=== PATIENT | male | born 1955 | race Caucasian/White ===

== ENCOUNTER 2018-07-01 17:00 | Emergency (ER) | payer OTHER ==
[2018-07-01 17:42] LABS: ABSOLUTE BASOPHILS # (AUTO) 0.1 10^3/uL (0.0-0.2); ABSOLUTE EOSINOPHILS # (AUTO) 0.1 10^3/uL (0.0-0.6); ABSOLUTE LYMPHOCYTES (AUTO) 1.7 10^3/uL (0.5-4.7); ABSOLUTE MONOCYTES (AUTO) 0.3 10^3/uL (0.1-1.4); ABSOLUTE NEUT (AUTO) 4.4 10^3/uL (1.7-8.2); BASOPHILS % (AUTO) 1.3 % (0-2); HEMATOCRIT 42.2 % (37.9-51.0); HEMOGLOBIN 14.4 g/dL (13.5-17.0); LYMPHOCYTES % (AUTO) 25.4 % (13-45); MEAN CORPUSCULAR HEMOGLOBIN 32.9 pg (27.0-33.4); MEAN CORPUSCULAR VOLUME 97 fl (80-97); MONOCYTES % (AUTO) 5.1 % (3-13); PLATELET COUNT 194 10^3/uL (150-450); RED BLOOD COUNT 4.37 10^6/uL (4.35-5.55); RED CELL DISTRIBUTION WIDTH 13.7 % (11.5-14.0); SEGMENTED NEUTROPHILS % (AUTO) 66.2 % (42-78); TOTAL CELLS COUNTED % (AUTO) 100 %; WHITE BLOOD COUNT 6.6 10^3/uL (4.0-10.5)
[2018-07-01 17:58] LABS: ALANINE AMINOTRANSFERASE 85 U/L (21-72); ALBUMIN 4.8 g/dL (3.5-5.0); ALKALINE PHOSPHATASE 89 U/L (38-126); ANION GAP 11 (5-19); ASPARTATE AMINO TRANSFERASE 141 U/L (17-59); BILIRUBIN,DIRECT 0.4 mg/dL (0.0-0.4); BILIRUBIN,TOTAL 1.1 mg/dL (0.2-1.3); BLOOD UREA NITROGEN 13 mg/dL (7-20); CALCIUM 10.6 mg/dL (8.4-10.2); CARBON DIOXIDE 25 mmol/L (22-30); CHLORIDE 101 mmol/L (98-107); CREATINE KINASE 61 U/L (55-170); GLUCOSE 103 mg/dL (75-110); POTASSIUM 4.4 mmol/L (3.6-5.0); SODIUM 137.4 mmol/L (137-145); TOTAL PROTEIN 8.1 g/dL (6.3-8.2)
[2018-07-01 18:10] LABS: CREATINE KINASE MB 0.43 ng/mL (<4.55)
[2018-07-01 18:11] LABS: TROPONIN I < 0.012 ng/mL
[2018-07-01 18:58] LABS: APPEARANCE,URINE SLIGHTLY-CLOUDY; BILIRUBIN,URINE NEGATIVE (NEGATIVE); COLOR,URINE YELLOW; GLUCOSE, URINE NEGATIVE (NEGATIVE); KETONES,URINE NEGATIVE (NEGATIVE); LEUKOCYTE ESTERASE,URINE NEGATIVE (NEGATIVE); NITRITE,URINE NEGATIVE (NEGATIVE); PROTEIN,URINE 30 mg/dL (NEGATIVE); UROBILINOGEN,URINE NEGATIVE mg/dL (<2.0)
--- NOTE | 2018-07-01 19:42 | ER Document Report ---
ED General - General Chief Complaint: Near Syncope Stated Complaint: POSSIBLE SYNCOPE Time Seen by Provider: 07/01/18 18:31 Primary Care Provider: OLIVER AGUIRRE [Primary Care Provider] - Follow up as needed Notes: Patient is a 62-year-old male with a past medical history of hypothyroidism who presents with an episode of lightheadedness. 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 States that he became diaphoretic and clammy. Symptoms came on abruptly, regarded as being severe when present. No obvious exacerbating factor. He sat down and began to feel better but staff at the bank did call 911. The patient states "I told them I did not think that was necessary but they called anyways". At the time of my evaluation his only complaint is that he is hungry and would like something to eat. He denies any associated chest pain, shortness of breath, focal weakness, numbness or headache. Denies a history of similar symptoms in the past. Has not seen his primary physician regarding today's concerns. No history of DVT or pulmonary embolus. No cardiac history. TRAVEL OUTSIDE OF THE [place] IN LAST 30 DAYS: No - Related Data Allergies/Adverse Reactions: amoxicillin Allergy (Verified 07/01/18 17:15) Penicillins Allergy (Verified 07/01/18 17:15) Past Medical History - General Information source: Patient - Social History Smoking Status: Never Smoker Frequency of alcohol use: None Drug Abuse: None Lives with: Alone Family History: Reviewed & Not Pertinent Patient has suicidal ideation: No Patient has homicidal ideation: No - Past Medical History Cardiac Medical History: Reports: Hx Hypercholesterolemia Renal/ Medical History: Denies: Hx Peritoneal Dialysis Past Surgical History: Reports: Hx Orthopedic Surgery - right knee x3 Review of Systems - Review of Systems Notes: Constitutional: Negative for fever. HENT: Negative for sore throat. Eyes: Negative for visual changes. Cardiovascular: Negative for chest pain. Positive for lightheadedness Respiratory: Negative for shortness of breath. Gastrointestinal: Negative for abdominal pain, vomiting or diarrhea. Genitourinary: Negative for dysuria. Musculoskeletal: Negative for back pain. Skin: Negative for rash. Neurological: Negative for headaches, weakness or numbness. 10 point ROS negative except as marked above and in HPI. Physical Exam - Vital signs Vitals: Temp Resp Pulse Ox 97.7 F 16 95 07/01/18 17:14 07/01/18 17:14 07/01/18 17:14 Interpretation: Normal Notes: PHYSICAL EXAMINATION: GENERAL: Well-appearing, well-nourished and in no acute distress. HEAD: Atraumatic, normocephalic. EYES: Pupils equal round and reactive to light, extraocular movements intact, sclera anicteric, conjunctiva are normal. ENT: nares patent, oropharynx clear without exudates. Moist mucous membranes. NECK: Normal range of motion, supple without lymphadenopathy LUNGS: Breath sounds clear to auscultation bilaterally and equal. No wheezes rales or rhonchi. HEART: Regular rate and rhythm without murmurs ABDOMEN: Soft, nontender, normoactive bowel sounds. No guarding, no rebound. No masses appreciated. EXTREMITIES: Normal range of motion, no pitting or edema. No cyanosis. NEUROLOGICAL: No focal neurological deficits. Moves all extremities spontaneously and on command. PSYCH: Normal mood, normal affect. SKIN: Warm, Dry, normal turgor, no rashes or lesions noted. Course - Re-evaluation Re-evalutation: 07/01/18 19:38 Presentation of near syncope of unclear etiology. Patient normotensive, alert, without focal neurologic deficits at time of arrival. Denies lightheadedness was during exertion. No preceding symptoms of palpitations, chest pain, or shortness of breath. Patient asymptomatic at time of arrival. EKG is without evidence of HCOM, right heart strain, ST changes to suggest ischemia, prolong QTc, delta wave, epsilon wave, or Brugada syndrome. Patient denies any family history of sudden cardiac , personal history of of structural heart disease. Patient denies any symptoms to suggest an acute PE, GA, TAD, SAH, seizure, or acute GI bleed as the etiology of their near syncope today. On exam, no murmurs to suggest critical aortic stenosis as possible etiology. Based on overall clinical history, exam findings, vitals, and patients appearance, I feel it is safe for patient to be discharged home at this time with close outpatient follow-up and strict return precautions. Patient is in agreement with this plan, has verbalized indications for return to ED, and questions have been answered. - Vital Signs Vital signs: Temp Pulse Resp BP Pulse Ox 98.0 F 14 138/97 H 98 07/01/18 19:46 07/01/18 19:40 07/01/18 19:40 07/01/18 19:40 - Laboratory Result Diagrams: 07/01/18 17:08 07/01/18 17:08 Laboratory results interpreted by me: 07/01/18 07/01/18 17:08 18:10 Calcium 10.6 H AST 141 H ALT 85 H Urine Protein 30 H Urine Blood SMALL H - EKG Interpretation by Me Additional EKG results interpreted by me: 07/01/18 19:41 Sinus rhythm, rate 81. No ST elevations or depressions. QTC is 446. Discharge - Discharge Clinical Impression: Near syncope, Lightheadedness Condition: Good Disposition: HOME, SELF-CARE Additional Instructions: You were seen today after an episode of almost passing out. Your EKG here is no rmal. At this time, we do not feel that your episode of lightheadedness was from any life-threatening cause. Please drink plenty of fluids over the next several days. Return to emergency department if you have any further episodes of syncope, headache, weakness, numbness, chest pain, or shortness of breath. Please follow up closely with your primary care physician. Referrals: [facility] [Primary Care Provider] - Follow up as needed
--- NOTE | 2018-07-01 19:45 | EKG REPORT ---
SEVERITY:- BORDERLINE ECG - SINUS RHYTHM BORDERLINE T ABNORMALITIES, ANTERIOR LEADS : Confirmed by: Manuela Roper MD 01-Jul-2018 19:44:40
[2018-07-01 19:46] VITALS: BP 138/97
== END 2018-07-01 19:52 | disposition home or self-care (01) ==
LOC: ER 17:00
DX: R55 Syncope and collapse (principal); R61 Generalized hyperhidrosis; Z88.0 Allergy status to penicillin
CPT/HCPCS: 36415; 80053; 81001; 82550; 82553; 84484; 85025; 93005; 93010; 99284

== ENCOUNTER 2018-12-11 13:45 | Emergency (ER) | payer OTHER, MEDICARE ==
[2018-12-11 14:12] LABS: ABSOLUTE BASOPHILS # (AUTO) 0.1 10^3/uL (0.0-0.2); ABSOLUTE EOSINOPHILS # (AUTO) 0.2 10^3/uL (0.0-0.6); ABSOLUTE LYMPHOCYTES (AUTO) 1.9 10^3/uL (0.5-4.7); ABSOLUTE MONOCYTES (AUTO) 0.3 10^3/uL (0.1-1.4); ABSOLUTE NEUT (AUTO) 2.7 10^3/uL (1.7-8.2); BASOPHILS % (AUTO) 1.2 % (0-2); EOSINOPHILS % (AUTO) 4.6 % (0-6); HEMATOCRIT 38.2 % (37.9-51.0); HEMOGLOBIN 12.9 g/dL (13.5-17.0); LYMPHOCYTES % (AUTO) 35.7 % (13-45); MEAN CORPUSCULAR HEMOGLOBIN 33.4 pg (27.0-33.4); MEAN CORPUSCULAR HGB CONC 33.7 g/dL (32.0-36.0); MEAN CORPUSCULAR VOLUME 99 fl (80-97); MONOCYTES % (AUTO) 6.5 % (3-13); PLATELET COUNT 137 10^3/uL (150-450); RED BLOOD COUNT 3.86 10^6/uL (4.35-5.55); RED CELL DISTRIBUTION WIDTH 14.1 % (11.5-14.0); TOTAL CELLS COUNTED % (AUTO) 100 %; WHITE BLOOD COUNT 5.2 10^3/uL (4.0-10.5)
[2018-12-11 14:26] LABS: ALBUMIN 3.9 g/dL (3.5-5.0); ALKALINE PHOSPHATASE 87 U/L (38-126); ANION GAP 9 (5-19); ASPARTATE AMINO TRANSFERASE 91 U/L (17-59); BILIRUBIN,DIRECT 0.2 mg/dL (0.0-0.4); BILIRUBIN,TOTAL 0.8 mg/dL (0.2-1.3); BLOOD UREA NITROGEN 8 mg/dL (7-20); CALCIUM 9.2 mg/dL (8.4-10.2); CARBON DIOXIDE 23 mmol/L (22-30); CHLORIDE 109 mmol/L (98-107); GLUCOSE 91 mg/dL (75-110); POTASSIUM 3.7 mmol/L (3.6-5.0); TOTAL PROTEIN 6.8 g/dL (6.3-8.2)
--- NOTE | 2018-12-11 14:35 | ER Document Report ---
ED Medical Screen (RME) - General Chief Complaint: Near Syncope Stated Complaint: POSSIBLE SYNCOPE EPISODE Time Seen by Provider: 12/11/18 14:34 Primary Care Provider: CARLA,OLIVER [Primary Care Provider] - Follow up as needed Mode of Arrival: Medic Information source: Patient Notes: 63-year-old male presented to ED for complaint of dizziness near syncopal episode. He states he was at the [employer] working when he became very dizzy lightheaded had to sit down. He states the [employer] sent him by ambulance to the emergency room due to being dizzy and lightheaded. He states he thought he just needs to sit down. He is alert oriented respirations regular and unlabored at this time. He thinks he was just dehydrated. We will get blood urine and check vital signs and have him evaluated by another provider. I have greeted and performed a rapid initial assessment of this patient. A comprehensive ED assessment and evaluation of the patient, analysis of test results and completion of medical decision making process will be conducted by an additional ED providers. TRAVEL OUTSIDE OF THE [place] IN LAST 30 DAYS: No - Related Data Allergies/Adverse Reactions: amoxicillin Allergy (Verified 07/01/18 17:15) Penicillins Allergy (Verified 07/01/18 17:15) Past Medical History - Past Medical History Cardiac Medical History: Reports: Hx Hypercholesterolemia Renal/ Medical History: Denies: Hx Peritoneal Dialysis Past Surgical History: Reports: Hx Orthopedic Surgery - right knee x3 Physical Exam - Vital signs Vitals: Temp Pulse Resp BP Pulse Ox 97.7 F 80 17 126/74 H 96 12/11/18 13:49 12/11/18 13:49 12/11/18 13:49 12/11/18 13:49 12/11/18 13:49 Course - Vital Signs Vital signs: Temp Pulse Resp BP Pulse Ox 97.7 F 80 17 126/74 H 96 12/11/18 13:49 12/11/18 13:49 12/11/18 13:49 12/11/18 13:49 12/11/18 13:49 - Laboratory Result Diagrams: 12/11/18 13:56 12/11/18 13:56 Laboratory results interpreted by me: 12/11/18 12/11/18 13:56 13:56 RBC 3.86 L Hgb 12.9 L MCV 99 H RDW 14.1 H Plt Count 137 L Chloride 109 H AST 91 H Doctor's Discharge - Discharge Referrals: [facility] [Primary Care [facility]] - Follow up as needed
[2018-12-11 15:10] LABS: CREATINE KINASE MB 1.01 ng/mL (<4.55)
[2018-12-11 15:16] LABS: TROPONIN I < 0.012 ng/mL
--- NOTE | 2018-12-11 15:31 | ER Document Report ---
ED General - General Chief Complaint: Near Syncope Stated Complaint: POSSIBLE SYNCOPE EPISODE Time Seen by Provider: 12/11/18 14:34 Primary Care Provider: CARLA,OLIVER [Primary Care Provider] - Follow up as needed Mode of Arrival: Medic TRAVEL OUTSIDE OF THE [place] IN LAST 30 DAYS: No - HPI Notes: This is a 63-year-old male presenting for evaluation of near syncope. Per EMS report patient's orthostatics were positive and EKG is unremarkable for acute myocardial injury pattern. EMS interventions included normal saline bolus. Blood pressure per EMS 120/85, pulse ox 97%, heart rate 80 respiration rate 16 blood sugar 102. On initial presentation patient appears to be in no acute distress. Patient relates history. Patient states that he has a history of near syncopal episodes with the last one being in April. Patient states that he had driven to the local [place]. Patient states that when he went from a sitting position in the car to standing and walking into the [place] he told his friend that he "felt funny." Patient states that he had a episode of "almost blacking out" but not actually losing consciousness. Symptoms seem to be aggravated by patient's failure to have eaten today and by change in position from sitting, to standing, to walking into the [place] in a rapid fashion. Patient admits that he took his regular medications today but forgot to eat because he was in such a hurry to get over to his ex-'s house. Patient states ex- is on dialysis, that they have a good relationship now and he was going over to fix lunch for his ex-, his daughter and himself. Patient denies chest pain, headache, persistent visual changes, slurred speech, focal weakness, paresthesias, abdominal pain, nausea and vomiting. Patient states that he feels much better at this time since he has received a bolus of fluid in route by EMS and is currently sitting upright in bed. Patient's GCS is 15 at this time, his speech is appropriate, he has no apparent focal findings on his physical exam. Differential diagnosis: Patient orthostatic hypotension, orthostasis, hypoglycemia, dietary indiscretion, electrolyte abnormality, ACS. - Related Data Allergies/Adverse Reactions: amoxicillin Allergy (Verified 07/01/18 17:15) Penicillins Allergy (Verified 07/01/18 17:15) Past Medical History - General Information source: Patient - Social History Smoking Status: Unknown if Ever Smoked Family History: Reviewed & Not Pertinent Patient has suicidal ideation: No Patient has homicidal ideation: No - Past Medical History Cardiac Medical History: Reports: Hx Hypercholesterolemia Renal/ Medical History: Denies: Hx Peritoneal Dialysis Past Surgical History: Reports: Hx Orthopedic Surgery - right knee x3 Review of Systems - Review of Systems Constitutional: No symptoms reported EENT: No symptoms reported Cardiovascular: No symptoms reported Respiratory: No symptoms reported Gastrointestinal: No symptoms reported Genitourinary: No symptoms reported Male Genitourinary: No symptoms reported Musculoskeletal: No symptoms reported Skin: No symptoms reported Hematologic/Lymphatic: No symptoms reported Neurological/Psychological: See HPI -: Yes All other systems reviewed and negative Physical Exam - Vital signs Vitals: Temp Pulse Resp BP Pulse Ox 97.7 F 80 17 126/74 H 96 12/11/18 13:49 12/11/18 13:49 12/11/18 13:49 12/11/18 13:49 12/11/18 13:49 - Notes Notes: PHYSICAL EXAMINATION: GENERAL: Well-appearing, well-nourished and in no acute distress. HEAD: Atraumatic, normocephalic. EYES: Pupils equal round and reactive to light, extraocular movements intact, sclera anicteric, conjunctiva are normal. ENT: nares patent, oropharynx clear without exudates. Moist mucous membranes. NECK: Normal range of motion, supple without lymphadenopathy LUNGS: Breath sounds clear to auscultation bilaterally and equal. No wheezes rales or rhonchi. HEART: Regular rate and rhythm without murmurs ABDOMEN: Soft, nontender, normoactive bowel sounds. No guarding, no rebound. No masses appreciated. EXTREMITIES: Normal range of motion, no pitting or edema. No cyanosis. NEUROLOGICAL: No focal neurological deficits. Moves all extremities spontaneously and on command. PSYCH: Normal mood, normal affect. SKIN: Warm, Dry, normal turgor, no rashes or lesions noted. Course - Re-evaluation Re-evalutation: 12/11/18 17:13 Patient remains comfortable, pleasant, alert and oriented x3 and in no acute distress. Patient is tolerating p.o. without difficulty. Results were discussed with patient. All questions were answered. Patient states that they are comfortable with being discharged home. Diagnosis discussed with patient and all questions answered. Patient is instructed to follow-up with their PCP as needed and is instructed to return to the ED at any time by calling 911 if symptoms return or worsen despite following discharge instructions as discussed with patient. - Vital Signs Vital signs: Temp Pulse Resp BP Pulse Ox 97.7 F 72 16 138/85 H 98 12/11/18 13:49 12/11/18 15:33 12/11/18 17:00 12/11/18 16:46 12/11/18 17:00 - Laboratory Result Diagrams: 12/11/18 13:56 12/11/18 13:56 Laboratory results interpreted by me: 12/11/18 12/11/18 13:56 13:56 RBC 3.86 L Hgb 12.9 L MCV 99 H RDW 14.1 H Plt Count 137 L Chloride 109 H AST 91 H - EKG Interpretation by Me Additional EKG results interpreted by me: 12/11/18 16:03 EKG performed at 1426 hrs. on 12/11/2018 was interpreted by this MD. Findings: Normal sinus rhythm, heart rate approximately 75 bpm, normal axis, P waves preceding QRS complexes, narrow QRS complex, nonspecific ST segments. No prior EKG is immediately available at this time for comparison. Impression normal sinus rhythm with a rate of [address] segments. Discharge - Discharge Clinical Impression: Orthostatic hypotension Condition: Good Disposition: HOME, SELF-CARE Instructions: Orthostatic Hypotension ([facility]) Additional Instructions: Return to the Emergency Department without delay if any worse. Referrals: [facility] [Primary [facility]] - Follow up as needed
[2018-12-11 15:49] LABS: APPEARANCE,URINE CLEAR; BILIRUBIN,URINE NEGATIVE (NEGATIVE); COLOR,URINE COLORLESS; GLUCOSE, URINE NEGATIVE (NEGATIVE); KETONES,URINE NEGATIVE (NEGATIVE); LEUKOCYTE ESTERASE,URINE NEGATIVE (NEGATIVE); NITRITE,URINE NEGATIVE (NEGATIVE); PROTEIN,URINE NEGATIVE (NEGATIVE); URINE SPECIFIC GRAVITY 1.002; UROBILINOGEN,URINE NEGATIVE mg/dL (<2.0)
[2018-12-11 16:01] LABS: URINE AMPHETAMINES SCREEN NEGATIVE; URINE BARBITURATES SCREEN NEGATIVE; URINE BENZODIAZEPINES SCREEN NEGATIVE; URINE COCAINE SCREEN NEGATIVE; URINE MARIJUANA (THC) SCREEN NEGATIVE; URINE METHADONE SCREEN NEGATIVE; URINE PHENCYCLIDINE SCREEN NEGATIVE
[2018-12-11 17:30] VITALS: BP 138/85
--- NOTE | 2018-12-12 00:31 | EKG REPORT ---
SEVERITY:- ABNORMAL ECG - SINUS RHYTHM NONSPECIFIC T ABNORMALITIES, DIFFUSE LEADS : Confirmed by: Eileen Huerta 12-Dec-2018 00:29:55
== END 2018-12-11 17:45 | disposition home or self-care (01) ==
LOC: ER 13:45
DX: I95.1 Orthostatic hypotension (principal); R42 Dizziness and giddiness; Z79.899 Other long term (current) drug therapy
CPT/HCPCS: 36415; 80053; 80307; 81001; 82550; 82553; 84484; 85025; 93005; 93010; 99284